=== PATIENT | female | born 1940 | race Caucasian/White ===

== ENCOUNTER 2016-06-23 04:21 | Emergency (ER) | payer BC ==
[~2016-06-23] VITALS: Ht 170.2 cm; Wt 63.0 kg
[2016-06-23 04:25] VITALS: TEMP 36.4; Ht 170.2 cm; Wt 63.0 kg
[2016-06-23] MEDS ORDERED: HYDROCODONE/ACETAMOPHEN 5/325MG TAB PO ONE (05:00)
--- NOTE | 2016-06-23 05:05 | EMERGENCY ROOM VISIT NOTE ---
History Report prepared by Ariana: Bess Lynch Under the Supervision of: Dr. Wendy Gan M.D. 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 The patient rates the pain as a 9/10 in severity. The patient states that she was cooking yesterday and fell hitting the kitchen counter. The patient states she is unsure what happened to cause the fall , and that she might have fainted briefly. She denies any LOC. The patient states that the fall happened so fast that she does not remember exactly what happened. The patient states she also has neck pain with her symptoms. She denies any back pain or blood in her urine. The patient states that she was not able to sleep more than a half an hour due to the pain. 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 Review of Systems See HPI for pertinent positives & negatives. A total of 10 systems reviewed and were otherwise negative. Past Medical & Surgical Medical Problems: (1) Breast cancer Family History No pertinent family history secondary to age Social History Smoking Status: Current Every Day Smoker Marital Status: Housing Status: lives with significant other Occupation Status: retired Current/Historical Medications Scheduled PRN Hydrocodone/Acetaminophen 5MG/325MG (Conrath 5MG/325MG), 1 TABLET PO Q6 PRN for Pain Allergies Coded Allergies: Clindamycin (Unverified Allergy, Mild, HIVES, 06/23/16) Sulfa Drugs (Verified Allergy, Mild, UNSURE, 06/23/16) Physical Exam Vital Signs Date Time Temp Pulse Resp B/P Pulse Ox O2 Delivery O2 Flow Rate FiO2 06/23/16 05:41 81 20 154/78 98 06/23/16 04:25 36.4 98 20 146/90 98 Room Air Physical Exam Vital signs reviewed. General: Elderly female. HEENT: No scleral icterus, PERRLA, neck supple. Atraumatic. Cardiovascular: Regular rate and rhythm, no extra sounds. Pulmonary: Clear to auscultation bilaterally, normal work of breathing. Abdomen: Soft, nontender, nondistended, positive bowel sounds. Musculoskeletal: Atraumatic, no peripheral edema. Tenderness over the left lateral distal ribs, pain with deep inspiration. Positive splinting. Neurologic: Patient awake alert and oriented x 3, full strength in all 4 extremities. Cranial nerves 2 through 12 grossly intact. Skin: Warm, dry, no rash Medical Decision & Procedures ER Provider Diagnostic Interpretation: X-ray results as stated below per interpretation by me: Ribs with Chest X-ray: Rib fractures of the left distal ribs 9, 10, 11 No pneumothorax. Medications Administered Medications (Trade) Dose Ordered Sig/Minnie Route Start Time Stop Time Status Last Admin Dose Admin Acetaminophen/ Hydrocodone Bitart (Conrath 5/325 Tab) 1 tab NOW ONCE PO 06/23/16 05:00 06/23/16 05:01 DC 06/23/16 05:29 1 TAB ED Course 0456: Past medical records reviewed. The patient was evaluated in room B12B. A complete history and physical examination was performed. 0500: Ordered Conrath 5/325 Tab 1 tab PO. 0505: Upon reevaluation,I discussed findings with her. She verbalized agreement of the treatment plan. The patient was discharged home. Medical Decision The patient is a 75 year old female who presents to the ED with complaints of left rib pain. Differentials include rib fracture, pneumothorax, pneumonia, PE , contusion, spleen injury, and kidney injury. This patient was evaluated and appeared to be in no significant distress. Patient was given a Conrath tablet. Chest x-ray was performed and reveals multiple left-sided rib fractures. There is no significant pneumothorax appreciated to my review. The patient was instructed on incentive spirometry and discharged with a prescription for Conrath. She will use ibuprofen as needed for less severe pain. Patient will follow-up with her physician for reevaluation this week and return to the ER for worsening of symptoms or any medical concerns. Impression Primary Impression: Multiple fractures of ribs of left side Scribe Attestation The scribe's documentation has been prepared under my direction and personally reviewed by me in its entirety. I confirm that the note above accurately reflects all work, treatment, procedures, and medical decision making performed by me. Departure Information Dispostion Home / Self-Care Prescriptions Hydrocodone/Acetaminophen 5MG/325MG (Conrath 5MG/325MG) Tab 1 TABLET PO Q6 Y for Pain, #20 TAB Prov: Wendy Gan M.D. 06/23/16 Referrals Sincere Phan M.D. (PCP) Forms HOME CARE DOCUMENTATION FORM, IMPORTANT VISIT INFORMATION, WORK / SCHOOL INSTRUCTIONS Patient Instructions My [facility] Additional Instructions Diagnosis: Multiple left-sided rib fractures Incentive spirometer 10 times every hour while awake. Ibuprofen 600 mg every 6 hours as needed for pain with food. Conrath one tablet every 6 hours as needed for severe pain. Do not drive or take Tylenol with this medication. Follow-up with your physician this week for reevaluation. Return to the ER for worsening of symptoms or any medical concerns. Problem Qualifiers Primary Impression: Multiple fractures of ribs of left side Encounter type: initial encounter Fracture type: closed Qualified Codes: S22.42XA - Multiple fractures of ribs, left side, initial encounter for closed fracture
[2016-06-23] MEDS ORDERED: HYDR-5688 PO (05:09)
[2016-06-23 05:41] VITALS: BP 154/78; PULSE 81; O2SAT 98
--- NOTE | 2016-06-23 06:52 | DIAGNOSTIC IMAGING REPORT ---
LEFT RIBS UNILATERAL WITH PA CHEST CLINICAL HISTORY: Left rib pain status post trauma COMPARISON STUDY: No previous studies for comparison. FINDINGS: The erect chest reveals a 4 mm left apical pneumothorax. There are fractures of the left eighth ninth and 10th ribs. IMPRESSION: 1. Acute fractures of the left eighth, ninth, and 10th ribs. 2. Tiny left apical pneumothorax Electronically signed by: Silvino Rousseau M.D. 06/23/2016 6:51 AM Dictated Date/Time: 06/23/2016 6:48 AM
--- NOTE | 2016-06-23 07:33 | EMERGENCY ROOM VISIT NOTE ---
ED Visit Note First contact with patient: 04:29 Addendum: Radiology over read the x-ray performed earlier today and it is concerning for a tiny apical pneumothorax in addition to the rib fractures. The charge nurse Florencio Arguelles RN was asked to notify the patient of the findings and return later today for repeat chest x-ray.
[2016-11-09] MEDS ORDERED: MULT-506 PO (15:42)
[2016-11-16] MEDS ORDERED: IBUP-1459 PO (07:57)
== END 2016-06-23 05:42 | disposition home or self-care (01) ==
LOC: C.EDB 04:21
DX: S22.42XA Multiple fractures of ribs, left side, initial encounter for closed fracture (principal); W01.198A Fall on same level from slipping, tripping and stumbling with subsequent striking against other object, initial encounter; Y92.010 Kitchen of single-family (private) house as the place of occurrence of the external cause; Y93.G3 Activity, cooking and baking; Z85.3 Personal history of malignant neoplasm of breast; F17.210 Nicotine dependence, cigarettes, uncomplicated; S20.212A Contusion of left front wall of thorax, initial encounter; J93.9 Pneumothorax, unspecified

== ENCOUNTER 2016-06-23 09:19 | Emergency (ER) | payer BC ==
[~2016-06-23] VITALS: Ht 170.2 cm; Wt 63.0 kg
[~2016-06-23 09:19] MED LIST: HYDR-5688 PO
[2016-06-23 09:23] VITALS: TEMP 36.6; Ht 170.2 cm; Wt 63.0 kg
[2016-06-23] MEDS ORDERED: OXYCODONE HCL IR 5 MG TAB (IMMEDIATE RELEASE) PO STA (09:35)
--- NOTE | 2016-06-23 09:39 | EMERGENCY ROOM VISIT NOTE ---
History Report prepared by Scribe: Henrietta Vargas Under the Supervision of: Dr. Elder Lucas D.O. First contact with patient: 09:28 Chief Complaint: ABNORMAL DIAGNOSTIC TESTING Stated Complaint: ASKED TO COME BACK/ REPEAT X-RAY History of Present Illness The patient is a 75 year old female who presents to the Emergency Room to be evaluated for an abnormal x-ray this morning. The patient had a fall yesterday evening around 5PM in the kitchen. She slipped on the floor and fell into the counter, landing on the floor. She believes that she landed directly on her left ribs. Denies loss of consciousness. She was seen in the emergency room early this morning for evaluation and had a chest x-ray which revealed left distal fractures of ribs 9, 10, and 11. She was discharged home with a [facility] prescription. When radiology read the x-ray later in the morning, they found a tiny apical pneumothorax in addition to the rib fractures. She was asked to return to the ED for a repeat evaluation. Currently, she continues to complain of left rib pain. 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 Source of History: patient Onset: this morning Position: other (tiny apical pneumothorax) Timing: constant Note: Other symptoms: left rib pain Review of Systems See HPI for pertinent positives & negatives. A total of 10 systems reviewed and were otherwise negative. Past Medical & Surgical Medical Problems: (1) Breast cancer Family History No pertinent family history secondary to age Social History Smoking Status: Current Every Day Smoker Marital Status: Housing Status: lives with significant other Occupation Status: retired Current/Historical Medications Scheduled PRN Hydrocodone/Acetaminophen 5MG/325MG ([facility] 5MG/325MG), 1 TABLET PO Q6 PRN for Pain Allergies Coded Allergies: Clindamycin (Unverified Allergy, Mild, HIVES, 06/23/16) Sulfa Drugs (Verified Allergy, Mild, UNSURE, 06/23/16) Physical Exam Vital Signs Date Time Temp Pulse Resp B/P Pulse Ox O2 Delivery O2 Flow Rate FiO2 06/23/16 11:11 81 18 146/75 96 06/23/16 09:23 36.6 86 18 161/77 97 Room Air Physical Exam GENERAL: Patient is awake, alert, and in no acute distress. Patient is somewhat uncomfortable appearing and showing no signs of anxiety EYES: The conjunctivae are clear. The pupils are round and reactive. EARS, NOSE, MOUTH AND THROAT: The nose is without any evidence of any deformity. Mucous membranes are moist tongue is midline NECK: The neck is nontender and supple. RESPIRATORY: Splinting respirations noted. Diminished breath sounds noted throughout. No tachypnea or conversational dyspnea was noted. CARDIOVASCULAR: Regular rate and rhythm noted there no murmurs rubs or gallops normal S1 normal S2 GASTROINTESTINAL: The abdomen is soft. Bowel sounds are present in all quadrants. Abdomen is nontender PELVIS: The Pelvis is stable. No tenderness to palpation is noted. BACK: There was no midline tenderness appreciated. MUSCULOSKELETAL/EXTREMITIES: There is no evidence of gross deformity full range of motion is noted in the hips and shoulders SKIN: No edema was appreciated. There was chronic venostasis changes noted in both lower extremities. NEUROLOGIC: Patient is awake alert and oriented x3 Medical Decision & Procedures ER Provider Diagnostic Interpretation: Radiology results as stated below per my review and radiologist interpretation: CHEST-PA, LAT, APICAL LORDOTIC CLINICAL HISTORY: Pneumothorax. Chest trauma. COMPARISON STUDY: 02/13/2012 FINDINGS: There is an 8 mm left apical pneumothorax. Lower left rib fractures are visualized. There is no focal pulmonary consolidation. There is a trace left pleural effusion. IMPRESSION: 1. 7 mm left apical pneumothorax 2. Left-sided rib fractures 3. Trace left pleural fluid Electronically signed by: Silvino Rousseau M.D. 06/23/2016 10:18 AM Dictated Date/Time: 06/23/2016 10:17 AM Medications Administered Medications (Trade) Dose Ordered Sig/Minnie Route Start Time Stop Time Status Last Admin Dose Admin Oxycodone HCl (Roxicodone Immediate Rel Tab) 5 mg NOW STAT PO 06/23/16 09:35 06/23/16 09:36 DC 06/23/16 10:26 5 MG Ondansetron HCl (Zofran Odt) 4 mg ONE ONCE PO 06/23/16 09:45 06/23/16 09:46 DC 06/23/16 10:26 4 MG ED Course 30: The patient was evaluated in room A4. A complete history and physical examination were performed. 0935: Ordered Oxycodone HCl 5 mg PO. 0945: Ordered Zofran Odt 4 mg PO. 1034: I reassessed the patient and updated her on results. 1039: I discussed the case with Dr. Monzon - Thoracic Surgery. He will see the patient in the office tomorrow. 1044: Upon reevaluation, the patient is resting comfortably. I discussed the results and treatment plan with the patient. She verbalized agreement of the treatment plan. She was discharged home. Medical Decision Prior records/ancillary studies reviewed. Triage Nursing notes reviewed. The patient's history was concerning for traumatic injury Differential diagnosis: Etiologies such as fracture, dislocation, intra-abdominal, pneumothorax, intrathoracic , intracranial, neurologic, as well as other traumatic pathologies were entertained. The patient is a 75-year-old female who presented to the emergency department at the request of the emergency department charge nurse. The patient had a fall yesterday where she struck the left side of her chest. She was seen early this morning in our emergency department and was diagnosed with multiple left-sided rib fractures. Her chest x-ray was over read as a small left apical pneumothorax. She was already discharged at this time and was called by the charge nurse and told to return to the emergency department for repeat chest x- ray. The patient appeared to have significant left-sided rib pain consistent with her rib fractures. The patient was treated with pain medication and antiemetics in the emergency department. On subsequent reevaluation she was feeling much better. The patient had repeat chest x-ray which showed a small left apical pneumothorax. I discussed her case with the on-call cardiothoracic surgeon. He has recommended 24-hour follow-up for repeat chest x-ray in his office. And then he would follow her clinically as well as with serial chest x- rays. The patient was encouraged to follow-up with the cardiothoracic surgeon tomorrow. She was also encouraged to rest and avoid any strenuous activity. She was also encouraged to continue using the incentive spirometer and return to the emergency department immediately if symptoms change worsen or if the need arises. Consults Time Called: 103 Consulting Physician: Dr. Monzon - Thoracic Surgery Returned Call: 1030 I discussed the case with him. He will see the patient in the office tomorrow. Impression Primary Impression: Multiple fractures of ribs of left side Additional Impressions: Pneumothorax, left Chest wall contusion Scribe Attestation The scribe's documentation has been prepared under my direction and personally reviewed by me in its entirety. I confirm that the note above accurately reflects all work, treatment, procedures, and medical decision making performed by me. Departure Information Dispostion Home / Self-Care Referrals Sincere Phan M.D. (PCP) Alessandro Monzon MD Patient Instructions Fx Rib, My [facility] Additional Instructions Rest and avoid any strenuous activity. Continue all medications as prescribed. Follow-up with the cardiothoracic surgeon tomorrow as scheduled. Return to the emergency department immediately if symptoms change worsen or if the need arises. Problem Qualifiers Primary Impression: Multiple fractures of ribs of left side Encounter type: subsequent encounter Fracture type: closed Fracture healing : with routine healing Qualified Codes: S22.42XD - Multiple fractures of ribs , left side, subsequent encounter for fracture with routine healing Additional Impressions: Chest wall contusion Encounter type: subsequent encounter Laterality: left Qualified Codes: S20.212D - Contusion of left front wall of thorax, subsequent encounter
[2016-06-23] MEDS ORDERED: ONDANSETRON 4MG OD TAB PO ONE (09:45)
--- NOTE | 2016-06-23 10:19 | DIAGNOSTIC IMAGING REPORT ---
CHEST-PA, LAT, APICAL LORDOTIC CLINICAL HISTORY: Pneumothorax. Chest trauma. COMPARISON STUDY: 02/13/2012 FINDINGS: There is an 8 mm left apical pneumothorax. Lower left rib fractures are visualized. There is no focal pulmonary consolidation. There is a trace left pleural effusion. IMPRESSION: 1. 7 mm left apical pneumothorax 2. Left-sided rib fractures 3. Trace left pleural fluid Electronically signed by: Silvino Rousseau M.D. 06/23/2016 10:18 AM Dictated Date/Time: 06/23/2016 10:17 AM
[2016-06-23 11:11] VITALS: BP 146/75; PULSE 81; O2SAT 96
[2016-11-09] MEDS ORDERED: MULT-506 PO (15:42)
[2016-11-16] MEDS ORDERED: IBUP-1459 PO (07:57)
== END 2016-06-23 11:13 | disposition home or self-care (01) ==
LOC: C.EDB 09:20 → C.EDA 11:13
DX: S22.42XA Multiple fractures of ribs, left side, initial encounter for closed fracture (principal); S20.212A Contusion of left front wall of thorax, initial encounter; J93.9 Pneumothorax, unspecified; W01.198A Fall on same level from slipping, tripping and stumbling with subsequent striking against other object, initial encounter; Y92.010 Kitchen of single-family (private) house as the place of occurrence of the external cause; Z85.3 Personal history of malignant neoplasm of breast; F17.210 Nicotine dependence, cigarettes, uncomplicated

== ENCOUNTER → 2016-06-24 | Outpatient (CLI) | payer BC ==
[~2016-06-24] MED LIST changes: +IBUP-1459 PO; +MULT-506 PO
--- NOTE | 2016-06-24 08:35 | DIAGNOSTIC IMAGING REPORT ---
CHEST 2 VIEWS ROUTINE CLINICAL HISTORY: FOLLOW UP PNEUMOTHORAX, LT SIDED RIB FRACTURE*STATFOLLOW UP PNEU COMPARISON STUDY: 06/23/2016 FINDINGS: Very small residual left apical pneumothorax. Pleural separation is diminished from 7 to 4 mm. Chronic changes left base. Lungs otherwise appear clear. IMPRESSION: Very small left apical pneumothorax diminished in the prior study. Maximum pleural separation currently is 4 mm Electronically signed by: Romero Davis M.D. 06/24/2016 8:34 AM Dictated Date/Time: 06/24/2016 8:33 AM
== END | disposition home or self-care (01) ==
LOC: C.RAD 08:04
PROVIDERS: ATTEND Emergency Medicine
DX: Z09 Encounter for follow-up examination after completed treatment for conditions other than malignant neoplasm (principal); J93.9 Pneumothorax, unspecified; S22.32XA Fracture of one rib, left side, initial encounter for closed fracture; X58.XXXA Exposure to other specified factors, initial encounter

== ENCOUNTER → 2016-07-14 | Outpatient (CLI) | payer BC ==
--- NOTE | 2016-07-14 07:59 | DIAGNOSTIC IMAGING REPORT ---
CHEST 2 VIEWS ROUTINE CLINICAL HISTORY: PNEUMOTHORAX J93.9 pneumothorax COMPARISON STUDY: 06/24/2016 FINDINGS: Several left rib fractures unchanged. Lungs are currently considered clear. No evidence of pneumothorax. Appears described small left apical pneumothorax has resolved. IMPRESSION: No evidence for pneumothorax. Lungs are considered clear. Several left-sided rib fractures which have been described previously. Electronically signed by: Romero Davis M.D. 07/14/2016 7:57 AM Dictated Date/Time: 07/14/2016 7:57 AM
== END | disposition home or self-care (01) ==
LOC: C.RAD 07:36
PROVIDERS: ATTEND Surgery
DX: J93.9 Pneumothorax, unspecified (principal); S22.42XA Multiple fractures of ribs, left side, initial encounter for closed fracture; X58.XXXA Exposure to other specified factors, initial encounter

== ENCOUNTER → 2016-11-16 | Day surgery (SDC) | payer BC ==
[2016-11-09 15:42] VITALS: Ht 170.2 cm; Wt 62.7 kg
[~2016-11-16] VITALS: Ht 170.2 cm; Wt 62.7 kg
[~2016-11-16] MED LIST changes: -HYDR-5688 PO; +LIDOCAINE HCL 2% 2 ML VIAL (20MG/ML) ONE; +PROPOFOL IV EMULSION 10 MG/ML 20 ML VIAL IV ONE; +SODIUM CHLORIDE 0.9% 500ML 500 ML IV ONE
--- NOTE | 2016-11-16 08:21 | Endo History and Physical ---
History & Physical Date of Service: Nov 16, 2016. Chief Complaint: history of polyps Referring Physician: Dr. Sincere Phan History of Present Illness Surveillance colonoscopy for a history of polyps. Past Surgical History Hx Cardiac Surgery: No Hx Internal Defibrillator: No Hx Pacemaker: No Hx Abdominal Surgery: Yes (APPY) Hx of Implantable Prosthesis: No Hx Post-Op Nausea and Vomiting: No Hx Cancer Surgery: Yes (RT/LEFT LUMPECTOMY) Hx Thoracic Surgery: No Hx Orthopedic: Yes (LEFT ANKLE FX REPAIR) Hx Urinary Tract Surgery: No Family History None Social History Smoking Status: Current Every Day Smoker Hx Substance Use: No Hx Alcohol Use: Yes (1-2 DRINKS DAILY WITH DINNER) Allergies Coded Allergies: Clindamycin (Verified Allergy, Mild, HIVES, 11/16/16) Sulfa Drugs (Verified Allergy, Mild, RASH, 11/09/16) Current Medications Reported Home Medications Medications Dose Route/Sig Max Daily Dose Days Date Category Motrin (Ibuprofen) 400 Mg Tab 400 Mg PO Q6H PRN 11/16/16 Reported Multivitamin (Multivitamins) Tab 1 Tab PO DAILY 11/09/16 Reported Vital Signs Weight (Kilograms): 62.73 Height (Feet): 5 Height (Inches): 7 Date Time Temp Pulse Resp B/P (MAP) Pulse Ox O2 Delivery O2 Flow Rate FiO2 11/16/16 08:06 36.5 85 20 162/87 (112) 99 Room Air Physical Exam General Appearance: WD/WN, no apparent distress Respiratory/Chest: Auscultation: breath sounds normal, no wheezing Cardiovascular: Heart Auscultation: RRR, no murmurs Abdomen: Inspection & Palpation: soft, no tenderness, guarding & rebound Assessment and Plan Colonoscopy today.
--- NOTE | 2016-11-16 09:05 | Discharge Instructions ---
Endoscopy Patient Instructions Date / Procedure(s) Performed Nov 16, 2016. Colonoscopy Allergy Information Coded Allergies: Clindamycin (Verified Allergy, Mild, HIVES, 11/16/16) Sulfa Drugs (Verified Allergy, Mild, RASH, 11/09/16) Discharge Date / Findings Nov 16, 2016. Normal examination. Medication Instructions Restart Stopped Medication(s): Restart all medications today. Provider Instructions Activity Restrictions - No exercising or heavy lifting for 24 hours. - Do not drink alcohol the day of the procedure. - Do not drive a car or operate machinery until the day after the procedure. - Do not make any important decisions or sign important papers in 24 hours after the procedure. Following Day: - Return to full activity which may include returning to work/school. Diet Start your diet with liquids and light foods (jello, soup, juice, toast). Then eat your usual diet if not nauseated. Treatment For Common After Affects For mild abdominal pain, bloating, or excessive gas: - Rest - Eat lightly - Lie on right side Follow-Up Information Follow-up with Dr. Sincere Phan as scheduled Anesthesia Information What You Should Know You have had a procedure that required some medicine to reduce anxiety and discomfort. This treatment is called moderate sedation. After receiving the treatment, you may be sleepy, but you will be able to breathe on your own. The effects of the treatment may last for several hours. Follow these instructions along with Activity/Diet recommendations noted above: * Do NOT do anything where dizziness or clumsiness would be dangerous. * Rest quietly at home today, then you can be up and about tomorrow. * Have a responsible person stay with you the rest of today. * You may have had an I.V. today. If so, you may take the dressing off later today. Recommendations Call your doctor if: * Trouble breathing * Continuous vomiting for more than 24 hours * Temperature above 101 degrees * Severe abdominal pain or bloating * Pain not relieved by pain medicine ordered * There is increased drainage or redness from any incision * A large amount of rectal bleeding greater than 2-3 tablespoons. (If you had a polyp/s removed or have hemorrhoids, a small amount of blood - from the rectum is to be expected.) * You have any unanswered questions or concerns. IN THE EVENT OF A SERIOUS EMERGENCY, GO TO THE NEAREST EMERGENCY ROOM Your discharge instructions were prepared by provider Elder Christie. Patient Instructions Signature Page Nelda Bagley Patient (or Guardian) Signature/Date: I have read and understand the instructions given to me by my caregivers. Caregiver/RN/Doctor Signature/Date: The above-named patient and/or guardian has received patient instructions on this date. + Original Patient Signature Page (only) stays with chart. Please make copy for patient.
--- NOTE | 2016-11-16 09:22 | Anesthesiology Progress Note ---
Anesthesia Post Op Note Date & Time Nov 16, 2016 at 09:22 Vital Signs Pain Intensity: 0 Vital Signs Past 12 Hours Date Time Temp Pulse Resp B/P (MAP) Pulse Ox O2 Delivery O2 Flow Rate FiO2 11/16/16 09:16 73 16 129/80 (96) 98 Room Air 11/16/16 09:01 71 16 95/54 (68) 96 Room Air 11/16/16 08:06 36.5 85 20 162/87 (112) 99 Room Air Notes Mental Status: alert / awake / arousable, participated in evaluation Pt Amnestic to Procedure: Yes Nausea / Vomiting: adequately controlled Pain: adequately controlled Airway Patency, RR, SpO2: stable & adequate BP & HR: stable & adequate Hydration State: stable & adequate Anesthetic Complications: no major complications apparent
[2016-11-16 09:31] VITALS: BP 145/85; PULSE 71; O2SAT 100
--- NOTE | 2016-11-17 00:16 | GI REPORT ---
Procedure Date: 11/16/2016 8:29 AM Procedure: Colonoscopy Indications: High risk colon cancer surveillance: Personal history of colonic polyps Medicines: Propofol per Anesthesia Complications: No immediate complications. Estimated blood loss: None. Estimated Blood Loss: Estimated blood loss: none. Procedure: Pre-Anesthesia Assessment: - Prior to the procedure, a History and Physical was performed, and patient medications, allergies and sensitivities were reviewed. The patient's tolerance of previous anesthesia was reviewed. - ASA Grade Assessment: II - A patient with mild systemic disease. After I obtained informed consent, the scope was passed under direct vision. Throughout the procedure, the patient's blood pressure, pulse, and oxygen saturations were monitored continuously. The scope was introduced through the anus and advanced to the cecum, identified by appendiceal orifice and ileocecal valve. The colonoscopy was performed with ease. The patient tolerated the procedure well. The quality of the bowel preparation was excellent. The bowel preparation used was split dose MIralax. Findings: The entire examined colon appeared normal. Impression: - The entire examined colon is normal. - No specimens collected. Recommendation: - No repeat colonoscopy due to age and the absence of advanced adenomas. Elder Christie M.D. Elder Christie MD 11/16/2016 9:03:48 AM This report has been signed electronically. Note Initiated On: 11/16/2016 8:29 AM I attest to the content of the Intraoperative Record and orders documented therein, exceptions below
== END | disposition home or self-care (01) ==
LOC: C.GI 07:44
PROVIDERS: ATTEND Internal Medicine Gastroenterology
DX: Z12.11 Encounter for screening for malignant neoplasm of colon (principal); Z86.010 Personal history of colon polyps; F17.200 Nicotine dependence, unspecified, uncomplicated

== ENCOUNTER → 2016-12-01 | Outpatient (CLI) | payer BC ==
[~2016-12-01] MED LIST changes: -LIDOCAINE HCL 2% 2 ML VIAL (20MG/ML) ONE; -PROPOFOL IV EMULSION 10 MG/ML 20 ML VIAL IV ONE; -SODIUM CHLORIDE 0.9% 500ML 500 ML IV ONE
--- NOTE | 2016-12-01 10:13 | DIAGNOSTIC IMAGING REPORT ---
ULTRASOUND ABDOMEN COMPLETE CLINICAL HISTORY: Generalized abdominal pain. COMPARISON STUDY: No priors. TECHNIQUE: Real-time, grayscale, and color flow sonography of the abdomen was performed. Images are reviewed in the transverse and longitudinal planes. FINDINGS: Liver: The liver is top normal in size and demonstrates heterogeneously increased echotexture consistent with hepatic steatosis. There is no intrahepatic biliary ductal dilatation. The main portal vein is patent. Subcentimeter cysts are incidentally noted. Gallbladder: The gallbladder is normal in appearance. No gallstones are identified. There is no gallbladder wall thickening or pericholecystic fluid. A sonographic Aguirre's sign is reportedly absent. The common bile duct measures up to 0.4 cm in diameter. Pancreas: Visualized portions of the pancreatic head and body are normal in appearance. Spleen: The spleen is normal in size and echotexture, measuring 7.6 cm in length. Kidneys: The kidneys are normal in size and echotexture. There is no hydronephrosis. The right kidney measures 12.2 cm in length and the left kidney measures 10.0 cm in length. No shadowing calculi are identified. Abdominal vasculature: Visualized portions of the abdominal aorta and IVC are normal in appearance. Ascites: None. IMPRESSION: 1. No acute sonographic abnormality is identified. No gallstones are seen. 2. Hepatic steatosis. Electronically signed by: Nahun Haley M.D. 12/01/2016 10:11 AM Dictated Date/Time: 12/01/2016 10:10 AM
--- NOTE | 2016-12-01 10:34 | DIAGNOSTIC IMAGING REPORT ---
PELVIC COMPLETE NON OB HISTORY: 76 years-old Female ABD PAIN,PELVIC PERINEAL PAIN acute right-sided pelvic pain. Initial exam. COMPARISON: None available. TECHNIQUE: Multiple real-time sonographic images of the deep pelvic structures were obtained transabdominally and transvaginally assessing grayscale appearance and color flow and spectral analysis. FINDINGS: TRANSABDOMINAL: Pelvic structures are not well seen. TRANSVAGINAL: Uterus measures 5.4 x 3.7 x 5.0 cm and appears heterogeneous. Nabothian cyst is seen, 1.1 x 0.7 cm. There is a ovoid circumscribed structure of the posterior cervix, 1.4 x 1.2 x 1.3 cm suggesting complex nabothian cyst without internal flow. Endometrium is upper limits of normal, 0.5 cm. Left ovary is not diagnostically visualized. Right ovary measures 2.4 x 0.9 x 0.9 cm demonstrating arterial inflow. No right ovarian mass lesions are identified. There is no significant free pelvic fluid. IMPRESSION: 1. Endometrium measures within the upper limits of normal for a postmenopausal patient at 5 mm. 2. Several nabothian cysts are seen, at least one of which is mildly complex. 3. Right ovary appears normal. Left ovary not identified. The above report was generated using voice recognition software. It may contain grammatical, syntax or spelling errors. Electronically signed by: Elio Jauregui M.D. 12/01/2016 10:33 AM Dictated Date/Time: 12/01/2016 10:08 AM
== END | disposition home or self-care (01) ==
LOC: C.ULTR 08:51
PROVIDERS: ATTEND Family Medicine
DX: M54.30 Sciatica, unspecified side (principal); R10.9 Unspecified abdominal pain; R10.2 Pelvic and perineal pain; K76.0 Fatty (change of) liver, not elsewhere classified; N88.8 Other specified noninflammatory disorders of cervix uteri

== ENCOUNTER → 2016-12-22 | Outpatient (CLI) | payer BC | END | disposition home or self-care (01) | LOC: C.PAPS 08:22 | PROVIDERS: ATTEND Obstetrics & Gynecology | DX: Z12.4 Encounter for screening for malignant neoplasm of cervix (principal) ==

== ENCOUNTER → 2017-07-04 | Day surgery (SDC) | payer BC ==
[2017-06-08 13:05] VITALS: Ht 170.2 cm; Wt 61.4 kg
[~2017-07-04] VITALS: Ht 170.2 cm; Wt 61.4 kg
[~2017-07-04] MED LIST changes: +500ML BSS 0.3ML EPI 1:1000PF IRRIG ONE; +ACETAMINOPHEN 325 MG TAB PO PRN; +AMVISC PLUS 0.8ML SYRINGE INT OCU ONE; +ATROPINE SULFATE 0.1 MG/ML 5ML SYR IV PRN; +BSS FLUSH ONE; +EpHEDrine SULFATE INJ 50 MG/ML AMP IV PRN; +EpINEphrine INJ 1MG/ML AMP 1 MG/ML AMP ONE; +LACTATED RINGER'S 1000ML 500 ML IV SCH; +LIDOCAINE 3.5% OPH GEL PER APPLICATION CHARGE ONE; +LIDOCAINE HCL 1% MPF 2 ML VIAL ONE; +MIDAZOLAM HCL 1 MG/ML 2ML VIAL ONE; +PHENYLEPHRINE HCL 10% OP SOLN PER DROP CHARGE OPR SCH; +POVIDONE-IODINE OP SOLN 30 ML BTL ONE; +PROPARACAINE 0.5% OP SOLN PER DROP CHARGE OPR SCH; +TOBRAMYCIN/DEXAMETHASONE OPH OINT PER APPLN CHARGE ONE
[2017-07-04] MEDS: PHENYLEPHRINE HCL 2.5% OP SOLN PER DROP CHARGE OPR SCH ×2 (08:39→08:48)
[2017-07-04] MEDS: TROPICAMIDE 1% OP SOLN PER DROP CHARGE OPR SCH ×2 (08:40→08:49)
[2017-07-04] MEDS: CYCLOPENTOLATE HCL 1% OP SOLN PER DROP CHARGE OPR SCH ×2 (08:41→08:50)
[2017-07-04] MEDS: KETOROLAC 0.5% OP SOLN PER DROP CHARGE OPR SCH ×2 (08:42→08:51)
[2017-07-04] MEDS: GATIFLOXACIN OP SOLN PER DROP CHARGE OPR SCH ×2 (08:43→08:53)
--- NOTE | 2017-07-04 09:08 | History & Physical Bridge - SC ---
H&P Re-Evaluation Bridge Note: I have examined the patient, reviewed the History & Physical and in the interval since the performance of the History & Physical I have noted the following changes of clinical significance: No changes noted
--- NOTE | 2017-07-04 09:56 | [facility] Operative Report ---
Operative Report Date of Service Jul 04, 2017. Operative Report 1. PREOPERATIVE DIAGNOSIS: Cataract of the right eye. 2. POSTOPERATIVE DIAGNOSIS: Same. 3. PROCEDURE: Phacoemulsification with intraocular lens implantation of the right eye. SURGEON: Dr. Tavon Elizabeth. ANESTHESIA: Topical Lidocaine gel, 1% Non- Preserved intracameral Lidocaine, and monitored intravenous sedation. INDICATIONS FOR THE PROCEDURE: The patient is a 76 - year-old female with a history of cataract of the right eye causing significant visual impairment. The details of the proposed procedure were explained to the patient who asked appropriate questions and following discussion of all risks, benefits and alternatives agreed to have the procedure done. 4. OPERATION AND FINDINGS: DESCRIPTION OF PROCEDURE: After informed consent was obtained, the patient was brought to the Operating Room at the [facility]. The patient was placed in a supine position and then the right eye was prepped and draped in the usual sterile fashion for intraocular surgery. A drop of topical Lidocaine gel was placed in the operative eye. A wire lid speculum was then placed in the fornices. A corneal paracentesis was then created temporally. The Non-Preserved Lidocaine was then instilled into the anterior chamber. The anterior chamber was then pressurized with viscoelastic. A 2.0 mm clear corneal incision was then created temporally. A cystotome was inserted into the anterior chamber and used to create a tear in the anterior lens capsule. This capsular tear was then used to create a small flap and the flap was dragged in a counterclockwise direction in order to create a continuous curvilinear capsulorrhexis. Hydrodissection was accomplished with balanced salt solution. Phacoemulsification of the lens nucleus was then performed in a standard [id number] technique. The phaco time was 30 seconds with an average power of 6 %. The remaining cortical material was removed using irrigation aspiration. The capsular bag was then filled with viscoelastic. A B[employer]ch [employer] Lomb MI60L +20.5 diopters lens was then loaded into the injector and injected into the capsular bag. The remaining viscoelastic was removed with the irrigation aspiration handpiece. The wound was hydrated and then checked and found to be watertight. The intraocular pressure was checked and found to be adequate. The wire lid speculum was removed and the patient's face was cleaned and dried. TobraDex ointment was placed in the inferior fornix. The patient was discharged to the Recovery Room having tolerated the procedure well. There were no complications. The patient will be seen tomorrow in the office for follow-up. I attest to the content of the Intraoperative Record and any orders documented therein. Any exceptions are noted below.
--- NOTE | 2017-07-04 09:57 | Discharge Instructions-SurgCtr ---
Discharge Instructions Date of Service Jul 04, 2017. Visit Reason for Visit: Cataract Right Eye Discharge Discharge Diagnosis / Problem: cataract Discharge Goals Goal(s): Improve function Activity Recommendations Activity Limitations: per Instructions/Follow-up section Anesthesia . Post Anesthesia Instructions: If you have had General Anesthesia or IV Sedation: * Do not drive today. * Resume driving when surgeon permits. * Do not make important decisions or sign legal documents today. * Call surgeon for: 1. Temperature elevations greater than 101 degrees F. 2. Uncontrollable pain. 3. Excessive bleeding. 4. Persistent nausea and vomiting. 5. Medication intolerance (nausea, vomiting or rash). * For nausea and vomiting use only clear liquids such as: tea, soda, bouillon until nausea subsides, then gradually increase diet as tolerated. * If you have any concerns or questions, call your surgeon's office. If physician is unavailable and it is an emergency, call 911 or go to the nearest emergency room. . Diet Recommendations Home Diet: resume previous diet Procedures Procedures Performed: Right Cataract Phacoemulsification With Intraocular Lens Implant Pending Studies Studies pending at discharge: no Medical Emergencies . Who to Call and When: Medical Emergencies: If at any time you feel your situation is an emergency, please call 911 immediately. . Non-Emergent Contact Non-Emergency issues call your: Vision Specialist . . "Provider Documentation" section prepared by Tavon Elizabeth. .
[2017-07-04 09:59] VITALS: TEMP 36.4
--- NOTE | 2017-07-04 10:19 | Anesthesia Progress Nt - [facility] ---
Anesthesia Post Op Note Date & Time Jul 04, 2017 at 10:19 Vital Signs Pain Intensity: 0 Vital Signs Past 12 Hours Date Time Temp Pulse Resp B/P (MAP) Pulse Ox O2 Delivery O2 Flow Rate FiO2 07/04/17 09:59 36.4 75 16 118/77 (91) 99 Room Air 07/04/17 08:32 37.1 77 20 125/82 (96) 96 Room Air Notes Mental Status: alert / awake / arousable, participated in evaluation Pt Amnestic to Procedure: Yes Nausea / Vomiting: adequately controlled Pain: adequately controlled Airway Patency, RR, SpO2: stable & adequate BP & HR: stable & adequate Hydration State: stable & adequate Anesthetic Complications: no major complications apparent
[2017-07-04 10:29] VITALS: BP 115/65; PULSE 77; O2SAT 98
== END | disposition home or self-care (01) ==
LOC: X.SURG 07:57
PROVIDERS: ATTEND Ophthalmology
DX: H26.8 Other specified cataract (principal)

== ENCOUNTER → 2017-07-18 | Day surgery (SDC) | payer BC ==
[2017-07-13 08:09] VITALS: Ht 170.2 cm; Wt 61.4 kg
[~2017-07-18] VITALS: Ht 170.2 cm; Wt 61.4 kg
[~2017-07-18] MED LIST changes: +FENTANYL CITRATE INJ 50 MCG/1 ML 2 ML VIAL ONE; +IBUPROFEN 200 MG TAB ONE; +NURSING VERBAL MED ORDER ONE; +PHENYLEPHRINE HCL 10% OP SOLN PER DROP CHARGE OPL SCH; -PHENYLEPHRINE HCL 10% OP SOLN PER DROP CHARGE OPR SCH; +PROPARACAINE 0.5% OP SOLN PER DROP CHARGE OPL SCH; -PROPARACAINE 0.5% OP SOLN PER DROP CHARGE OPR SCH; +PROPOFOL IV EMULSION 10 MG/ML 20 ML VIAL IV ONE
[2017-07-18] MEDS: PHENYLEPHRINE HCL 2.5% OP SOLN PER DROP CHARGE OPL SCH ×2 (10:53→10:59)
[2017-07-18] MEDS: TROPICAMIDE 1% OP SOLN PER DROP CHARGE OPL SCH ×2 (10:54→11:00)
[2017-07-18] MEDS: CYCLOPENTOLATE HCL 1% OP SOLN PER DROP CHARGE OPL SCH ×2 (10:55→11:01)
[2017-07-18] MEDS: KETOROLAC 0.5% OP SOLN PER DROP CHARGE OPL SCH ×2 (10:56→11:02)
[2017-07-18] MEDS: GATIFLOXACIN OP SOLN PER DROP CHARGE OPL SCH ×2 (10:57→11:07)
--- NOTE | 2017-07-18 11:48 | [facility] Operative Report ---
Operative Report Date of Service Jul 18, 2017. Operative Report 1. PREOPERATIVE DIAGNOSIS: Cataract of the left eye. 2. POSTOPERATIVE DIAGNOSIS: Same. 3. PROCEDURE: Phacoemulsification with intraocular lens implantation of the left eye. SURGEON: Dr. Tavon Elizabeth. ANESTHESIA: Topical Lidocaine gel, 1% Non- Preserved intracameral Lidocaine, and monitored intravenous sedation. INDICATIONS FOR THE PROCEDURE: The patient is a 76 - year-old female with a history of cataract of the left eye causing significant visual impairment. The details of the proposed procedure were explained to the patient who asked appropriate questions and following discussion of all risks, benefits and alternatives agreed to have the procedure done. 4. OPERATION AND FINDINGS: DESCRIPTION OF PROCEDURE: After informed consent was obtained, the patient was brought to the Operating Room at the [facility]. The patient was placed in a supine position and then the left eye was prepped and draped in the usual sterile fashion for intraocular surgery. A drop of topical Lidocaine gel was placed in the operative eye. A wire lid speculum was then placed in the fornices. A corneal paracentesis was then created temporally. The Non-Preserved Lidocaine was then instilled into the anterior chamber. The anterior chamber was then pressurized with viscoelastic. A 2.0 mm clear corneal incision was then created temporally. A cystotome was inserted into the anterior chamber and used to create a tear in the anterior lens capsule. This capsular tear was then used to create a small flap and the flap was dragged in a counterclockwise direction in order to create a continuous curvilinear capsulorrhexis. Hydrodissection was accomplished with balanced salt solution. Phacoemulsification of the lens nucleus was then performed in a standard [id number]-[id number] technique. The phaco time was 31 seconds with an average power of 16 %. The remaining cortical material was removed using irrigation aspiration. The capsular bag was then filled with viscoelastic. A Bausch [employer] Lomb MI60L +21.0 diopters lens was then loaded into the injector and injected into the capsular bag. The remaining viscoelastic was removed with the irrigation aspiration handpiece. The wound was hydrated and then checked and found to be watertight. The intraocular pressure was checked and found to be adequate. The wire lid speculum was removed and the patient's face was cleaned and dried. TobraDex ointment was placed in the inferior fornix. The patient was discharged to the Recovery Room having tolerated the procedure well. There were no complications. The patient will be seen tomorrow in the office for follow-up. I attest to the content of the Intraoperative Record and any orders documented therein. Any exceptions are noted below.
--- NOTE | 2017-07-18 11:49 | Discharge Instructions-SurgCtr ---
Discharge Instructions Date of Service Jul 18, 2017. Visit Reason for Visit: Cataract Left Eye Discharge Discharge Diagnosis / Problem: cataract Discharge Goals Goal(s): Improve function Activity Recommendations Activity Limitations: per Instructions/Follow-up section Anesthesia . Post Anesthesia Instructions: If you have had General Anesthesia or IV Sedation: * Do not drive today. * Resume driving when surgeon permits. * Do not make important decisions or sign legal documents today. * Call surgeon for: 1. Temperature elevations greater than 101 degrees F. 2. Uncontrollable pain. 3. Excessive bleeding. 4. Persistent nausea and vomiting. 5. Medication intolerance (nausea, vomiting or rash). * For nausea and vomiting use only clear liquids such as: tea, soda, bouillon until nausea subsides, then gradually increase diet as tolerated. * If you have any concerns or questions, call your surgeon's office. If physician is unavailable and it is an emergency, call 911 or go to the nearest emergency room. . Diet Recommendations Home Diet: resume previous diet Procedures Procedures Performed: Left Cataract Phacoemulsification With Intraocular Lens Implant Pending Studies Studies pending at discharge: no Medical Emergencies . Who to Call and When: Medical Emergencies: If at any time you feel your situation is an emergency, please call 911 immediately. . Non-Emergent Contact Non-Emergency issues call your: Sheet Metal Worker Supervisor . . "Provider Documentation" section prepared by Tavon Elizabeth. .
[2017-07-18 12:32] VITALS: TEMP 37
--- NOTE | 2017-07-18 12:53 | Anesthesia Progress Nt - [facility] ---
Anesthesia Post Op Note Date & Time Jul 18, 2017 at 12:53 Vital Signs Pain Intensity: 2 Vital Signs Past 12 Hours Date Time Temp Pulse Resp B/P (MAP) Pulse Ox O2 Delivery O2 Flow Rate FiO2 07/18/17 12:32 37.0 74 12 132/66 (88) 97 Room Air 07/18/17 12:18 36.7 69 16 122/69 98 Room Air 07/18/17 12:16 73 14 07/18/17 12:16 73 14 122/69 97 07/18/17 12:11 73 16 126/64 98 07/18/17 12:11 74 16 07/18/17 12:06 77 10 106/58 99 07/18/17 12:06 75 10 07/18/17 12:01 75 17 07/18/17 12:01 74 17 111/65 99 07/18/17 11:56 72 18 07/18/17 11:56 72 18 115/68 98 07/18/17 11:52 108/68 07/18/17 11:51 36.4 67 12 108/68 96 Nasal Cannula 4 07/18/17 10:42 36.6 83 16 123/83 (96) 99 Room Air Notes Mental Status: alert / awake / arousable, participated in evaluation Pt Amnestic to Procedure: Yes Nausea / Vomiting: adequately controlled Pain: adequately controlled Airway Patency, RR, SpO2: stable & adequate BP & HR: stable & adequate Hydration State: stable & adequate Anesthetic Complications: no major complications apparent
[2017-07-18 13:10] VITALS: BP 146/84; PULSE 69; O2SAT 99
--- NOTE | 2017-07-19 11:28 | Anesthesiology Progress Note ---
Anesthesia Progress Note Date of Service Jul 19, 2017. Progress Notes The patient is POD 1 L eye phacoemulsification with IOL with Dr. Elizabeth. The patient called the surgery center wanting to know what medications she had received for her anesthesia. She stated that she saw Dr. Elizabeth in clinic this morning and that she was upset that she still did not have clear vision in her eye. I retrieved the patient's record and told her the medications and doses that she had received. She stated that although she felt she had a pleasant experience yesterday and didn't remember anything form during the procedure that she may want a general anesthetic in the future as she was worried that moving during the procedure may have caused her blurriness. I instructed her to discuss this with her surgeon in the future as well. After speaking with the patient I spoke to Cezar who stated that he explained to the patient earlier today that the anesthesia was not a problem and did not cause her blurry vision and that this is caused by normal swelling that should resolved in two to three days.
== END | disposition home or self-care (01) ==
LOC: X.SURG 10:33
PROVIDERS: ATTEND Ophthalmology
DX: H26.9 Unspecified cataract (principal); Z88.2 Allergy status to sulfonamides; Z88.1 Allergy status to other antibiotic agents; Z98.41 Cataract extraction status, right eye; F17.200 Nicotine dependence, unspecified, uncomplicated

== ENCOUNTER → 2017-10-10 | Outpatient (CLI) | payer BC ==
[~2017-10-10] MED LIST changes: -500ML BSS 0.3ML EPI 1:1000PF IRRIG ONE; -ACETAMINOPHEN 325 MG TAB PO PRN; -AMVISC PLUS 0.8ML SYRINGE INT OCU ONE; -ATROPINE SULFATE 0.1 MG/ML 5ML SYR IV PRN; -BSS FLUSH ONE; +CLB100 PO; -EpHEDrine SULFATE INJ 50 MG/ML AMP IV PRN; -EpINEphrine INJ 1MG/ML AMP 1 MG/ML AMP ONE; -FENTANYL CITRATE INJ 50 MCG/1 ML 2 ML VIAL ONE; -IBUPROFEN 200 MG TAB ONE; -LACTATED RINGER'S 1000ML 500 ML IV SCH; -LIDOCAINE 3.5% OPH GEL PER APPLICATION CHARGE ONE; -LIDOCAINE HCL 1% MPF 2 ML VIAL ONE; -MIDAZOLAM HCL 1 MG/ML 2ML VIAL ONE; -NURSING VERBAL MED ORDER ONE; -PHENYLEPHRINE HCL 10% OP SOLN PER DROP CHARGE OPL SCH; -POVIDONE-IODINE OP SOLN 30 ML BTL ONE; -PROPARACAINE 0.5% OP SOLN PER DROP CHARGE OPL SCH; -PROPOFOL IV EMULSION 10 MG/ML 20 ML VIAL IV ONE; -TOBRAMYCIN/DEXAMETHASONE OPH OINT PER APPLN CHARGE ONE
== END | disposition home or self-care (01) ==
LOC: C.MAMM 13:32
PROVIDERS: ATTEND Family Medicine
DX: Z13.820 Encounter for screening for osteoporosis (principal)

== ENCOUNTER → 2017-11-09 | Outpatient (CLI) | payer BC ==
--- NOTE | 2017-11-09 12:28 | DIAGNOSTIC IMAGING REPORT ---
CHEST 2 VIEWS ROUTINE CLINICAL HISTORY: 77 years-old Female presenting with preoperative assessment. TECHNIQUE: PA and lateral views of the chest were obtained. COMPARISON: 07/14/2016. FINDINGS: Cardiomediastinal silhouette normal. Calcified granulomas noted. Lungs and pleural spaces otherwise clear. Osseous structures normal. Upper abdomen normal. IMPRESSION: 1. No acute cardiopulmonary disease. Electronically signed by: Cassius Hodge M.D. 11/09/2017 12:27 PM Dictated Date/Time: 11/09/2017 12:25 PM
[2017-11-09 12:42] LABS: BASO % 0.3 %; BASO ABS # 0.02 K/uL (0-0.2); EOS % 0.6 %; EOS ABS # 0.04 K/uL (0-0.5); HEMATOCRIT 35.2 % (37-47); IG# 0.02 K/uL (0.00-0.02); LYMPH ABS # 2.09 K/uL (1.2-3.4); MEAN CELL VOLUME 105.4 fL (80-100); MEAN CORPUSCULAR HEMOGLOBIN 35.9 pg (25-34); MEAN CORPUSCULAR HGB CONC 34.1 g/dl (32-36); MEAN PLATELET VOLUME 10.5 fL (7.4-10.4); MONO % 7.9 %; MONO ABS # 0.53 K/uL (0.11-0.59); NEUT % 59.9 %; NEUT ABS # 4.05 K/uL (1.4-6.5); PLATELET COUNT 212 K/uL (130-400); RED CELL DISTRIBUTION WIDTH CV 12.9 % (11.5-14.5); RED CELL DISTRIBUTION WIDTH SD 49.6 fL (36.4-46.3); WHITE BLOOD COUNT 6.75 K/uL (4.8-10.8)
[2017-11-09 12:49] LABS: BLOOD UREA NITROGEN 9 mg/dl (7-18); CALCIUM 9.1 mg/dl (8.5-10.1); CARBON DIOXIDE 25 mmol/L (21-32); CREATININE 0.75 mg/dl (0.60-1.20); GLUCOSE 112 mg/dl (70-99); SODIUM 133 mmol/L (136-145)
[2017-11-09 12:54] LABS: PTT PATIENT 28.3 SECONDS (21.0-31.0)
== END | disposition home or self-care (01) ==
LOC: C.CPL 11:26
PROVIDERS: ATTEND Orthopaedic Surgery
DX: Z01.810 Encounter for preprocedural cardiovascular examination (principal); Z01.811 Encounter for preprocedural respiratory examination; Z01.812 Encounter for preprocedural laboratory examination

== ENCOUNTER 2025-01-03 09:02 | Observation (INO) ==
--- NOTE | 2024-11-19 11:01 | PAT Medication Instructions ---
Medication Instructions Date of Service November 19, 2024 Home Medications Medication Instructions Recorded tiotropium bromide 2.5 2 puff inhalation DAILY #4 grams 11/21/23 mcg/actuation mist for inhalation (Spiriva Respimat) albuterol sulfate 90 mcg/actuation 1 inh inhalation Q6H #1 ea 01/29/24 breath activated powder inhaler apixaban 2.5 mg tablet 2.5 mg PO BID #180 tabs 11/18/24 multivitamin 1 tab PO DAILY ibuprofen 400 mg tablet 400 mg PO Q6H PRN tiotropium bromide 2.5 mcg/actuation mist for inhalation (Spiriva Respimat) 2 puff inhalation DAILY albuterol sulfate 90 mcg/actuation breath activated powder inhaler 1 inh inhalation Q6H apixaban 2.5 mg tablet 2.5 mg PO BID digoxin 125 mcg (0.125 mg) tablet 250 mcg PO HS diltiazem HCl 300 mg capsule,extended release 24 hr 300 mg PO HS Continue as directed tiotropium bromide 2.5 mcg/actuation mist for inhalation (Spiriva Respimat) 2 puff inhalation DAILY ASK your surgeon for instructions ibuprofen 400 mg tablet 400 mg PO Q6H PRN ASK your prescriber and surgeon apixaban 2.5 mg tablet 2.5 mg PO BID DO NOT take the morning of surgery multivitamin 1 tab PO DAILY Take morning of surgery With a small sip of water, OTHERWISE NOTHING TO EAT OR DRINK AFTER MIDNIGHT: albuterol sulfate 90 mcg/actuation breath activated powder inhaler 1 inh inhalation Q6H(please bring with you to hospital day of surgery if possible) Take evening before surgery albuterol sulfate 90 mcg/actuation breath activated powder inhaler 1 inh inhalation Q6H digoxin 125 mcg (0.125 mg) tablet 250 mcg PO HS diltiazem HCl 300 mg capsule,extended release 24 hr 300 mg PO HS Other Notes If you have any questions please call us at [phone] or [phone] or [phone] or [phone]
--- NOTE | 2024-11-26 12:34 | Anesthesiology Consultation ---
Date of Service November 26, 2024 Assessment & Plan (1) Encounter for pre-operative examination: Chart Review Chart Review: Acceptable Risk for Surgery (pending review of upcoming cardio and pulm office visits ) and Patient seen in Pre Admission Testing - Awaiting routine [facility] appt 12/30/24 - Awaiting pulm appt 11/29/24 ([place]) - Discussed with Dr. Diego- due to age, functional status and PMH- patient is NOT an ideal OPJ candidate- patient and surgeon's office informed Per PAT appt on 11/26/24, no recent illness/disease exposures, illness related symptoms, or recent illness/disease positive tests. Will leave to surgeon's discretion if preop Covid testing needed Teaching & Discussion Pre-Anesthesia Teaching/Discussion Notes: Instructed NPO after midnight before surgery,except medications with 15 cc of water. Medication instructions provided according to the PAT guidelines. History Surgery Operation Date: 01/03/25 10:30 Proposed Procedures p Right Reverse Total Shoulder Arthroplasty - Andrew Andino, Height/Weight Height: 5 ft 6 in Weight: 55.1 kg Allergies Allergy/AdvReac Type Severity Reaction Status Date / Time clindamycin Allergy Intermediate HIVES Verified 11/26/24 10:14 Sulfa (Sulfonamide Allergy Intermediate RASH Verified 11/26/24 10:14 Antibiotics) Medications Home Medications Medication Instructions Recorded Confirmed Last Taken multivitamin 1 tab PO DAILY #0 tabs 11/09/16 11/26/24 12/02/17 20:00 ibuprofen 400 mg tablet 400 mg PO Q6H PRN Pain #0 tabs 11/16/16 11/26/24 1 Week Ago ~11/28/17 tiotropium bromide 2.5 2 puff inhalation DAILY #4 grams 11/21/23 11/26/24 Unknown mcg/actuation mist for inhalation (Spiriva Respimat) albuterol sulfate 90 mcg/actuation 1 inh inhalation Q6H #1 ea 01/29/24 11/26/24 Unknown breath activated powder inhaler apixaban 2.5 mg tablet 2.5 mg PO BID #180 tabs 11/18/24 11/26/24 Unknown digoxin 125 mcg (0.125 mg) tablet 250 mcg PO HS 11/19/24 11/26/24 Unknown diltiazem HCl 300 mg 300 mg PO HS 11/19/24 11/26/24 Unknown capsule,extended release 24 hr Past Medical History Medical History (Updated 11/26/24 @ 15:59 by Yaneth Magaña PA-C) Atrial fibrillation controlled with meds; follows with [facility]io on Eliquis Breast cancer dx'ed around 2014 (bilateral) s/p lumpectomy b/l- no chemo or XRT ; could not tolerate hormone medication COPD (chronic obstructive pulmonary disease) following with [facility] Pulm - feels breathing stable - not currently using inhalers (pt seeing 11/29/24 to discuss); quit smoking 2023 History of anesthesia reaction pt was told that she 'was aggressive' during cataract surgery/awareness during anesthesia; no issues with 11/2017 PATRICK Mitral regurgitation moderate per 2019 ECHO Osteoarthritis Pulmonary nodules [facility] pulm following Exercise / Class Metabolic Activity III < 4 Walking/Shop/Light housework (one flight of stairs - no chest pain, mild SOB ) Past Family History Family History Father Hearing loss Other Allergies Cancer Heart disease Hypertension No family history of adverse response to anesthesia No family history of bleeding disorder Denies family history of Ovarian cancer Breast cancer Colorectal cancer Past Surgical History Surgical History H/O sinus surgery History of appendectomy History of cataract surgery right and left History of dilation and curettage History of esophageal surgery excision abcess x 2 History of excision of pilonidal cyst History of hip replacement R PATRICK 2018 History of open reduction and internal fixation (ORIF) procedure left ankle Hx of lumpectomy LEFT AND RIGHT BREAST Past Anesthesia History No Hx of Anesthesia Complications (with exception to awareness during cataract procedure / was pushing people away during procedure) and No Family Hx of Anesthesia Complications History of PONV No Hx of PONV and No Hx of Motion Sickness Social History Smoking Status: Former smoker tobacco type: cigarettes Smoking cigarettes per day: 10 Do You Dip or Chew Tobacco: No Smoking End Date: 12/2023 Hx Alcohol Use: Yes Alcohol type: beer, wine and hard liquor alcohol intake frequency: 0-2 drinks per day (1-2 drinks/day) Hx Substance Use: No substance use type: does not use Review of Systems - Hx of snoring (mild/intermittent) - no hx of sleep study Patient denies chest pain, shortness of breath at rest, dyspnea on exertion, reflux, cough, wheezing, palpitations. No hx of seizures, stroke, PR. No hx of blood clots or blood transfusions Physical Exam Vital Signs VITALS BP 107/64 P 67 TEMP 97.6 SP02 98% RESP 16 Constitutional no acute distress ENMT Mouth: no TMJ clicking Thyromental Distance: > or= 3.5 Finger Breadths (4.0) Mallampati Class: II Missing molar Crowns to side teeth and molars Neck + limited neck extension (mild) Respiratory normal respiratory effort; no respiratory distress Auscultation: lungs clear to auscultation bilaterally and + diminished lung sounds (L>R); no wheezes Cardiovascular Heart Sounds: no murmur Vessels: no carotid bruit Irregularly irregular - rate controlled Musculoskeletal Spine: no pain with cervical ROM Extremities: extremities normal to inspection Psychiatric Orientation: alert Lab Results Anesthesia Preop Results Results Anesthesia Widget: WBC 7.53 K/ul (4.8-10.8) 11/26/24 Hgb 13.1 g/dl (12.0-16.0) 11/26/24 Hct 37.9 % (37.0-47.0) 11/26/24 Plt 241 K/uL (130-400) 11/26/24 Na 136 mmol/L (136-145) 11/26/24 K 4.6 mmol/L (3.5-5.1) 11/26/24 Cl 99 mmol/L (98-107) 11/26/24 CO2 30 mmol/L (21-32) 11/26/24 BUN 15 mg/dl (6-23) 11/26/24 Creat 0.94 mg/dl (0.6-1.2) 11/26/24 Glucose Level 152 mg/dl (70-99(Fasting)) H 11/26/24 PT 11.3 Seconds (9.0-12.0) 11/26/24 PTT 30 Seconds (21-31) 11/26/24 INR 1.0 (0.9-1.1) 11/26/24 Blood Type A Positive 11/26/24 Antibody Screen NEGATIVE 11/26/24 Testing Electrocardiogram Date: 11/26/24 Findings: + AFIB @ (70bpm) RBBB T wave abnormality, consider inferior ischemia When compared to EKG from Jan 29, 2024- no significant change was found per cardio Chest X-Ray Date: 02/27/24 FINDINGS: The lungs are hyperinflated. Cardiomediastinal silhouette is within normal limits. No pleural effusion or pneumothorax. No acute osseous abnormalities. IMPRESSION: Hyperinflated lungs compatible with COPD. Echocardiogram Date: 03/25/20 EF: 50-55% LV Function: normal Other Findings: no LVH Regional wall motion abnormalities cannot be excluded due to limited visualization. Some mild distal septal HK LA and RA mildly dilated Mild mitral annular calcification Moderate MR. Borderline MVP RVSP is normal Other Testing Chest CT 10/22/24= Cardiomegaly and mild emphysema. There are 2 low suspicion 3 mm pulmonary nodules in the left lower lobe which were not clearly seen on 10/09/2023. A precautionary 6-month follow-up examination is recommended for evaluation. A 9 mm solid nodule and a 9 mm groundglass nodule in the left upper lobe have not significantly changed dating back to 2021. These remain pathologically indeterminate, and the groundglass lesion remains suspicious for a low-grade adenomatous lesion. Continued attention to these nodules at follow- up is recommended. There is no airspace consolidation or pleural effusion.
--- NOTE | 2025-01-01 12:41 | History & Physical Report ---
Date of Service January 01, 2025 Assessment & Plan (1) Rotator cuff arthropathy of right shoulder: We will proceed with a right reverse shoulder arthroplasty. Postoperatively, she will be placed in a sling and kept overnight in the hospital for postop medical management. She plans to use energy physical therapy after discharge. History of Present Illness Chief Complaint: Cuff tear arthropathy right shoulder. Primary Care Provider: Sincere Lutz is a pleasant 84-year-old female who has been dealing with chronic right shoulder pain. She has been struggling with it for a few years. I have diagnosed her with osteoarthritis of her right shoulder. Unfortunately, injections and therapy have not helped. After failing conservative treatment, she has elected proceed with a right reverse shoulder arthroplasty. Allergies Allergy/AdvReac Type Severity Reaction Status Date / Time clindamycin Allergy Intermediate HIVES Verified 11/26/24 10:14 Sulfa (Sulfonamide Allergy Intermediate RASH Verified 11/26/24 10:14 Antibiotics) Home Medications Medication Instructions Recorded Confirmed Type multivitamin 1 tab PO DAILY #0 tabs 11/09/16 12/30/24 History ibuprofen 400 mg tablet 400 mg PO Q6H PRN Pain #0 tabs 11/16/16 12/30/24 History apixaban 2.5 mg tablet 2.5 mg PO BID #180 tabs 11/18/24 12/30/24 Rx digoxin 125 mcg (0.125 mg) tablet 250 mcg PO HS 11/19/24 12/30/24 History diltiazem HCl 300 mg 300 mg PO HS 11/19/24 12/30/24 History capsule,extended release 24 hr tiotropium bromide 2.5 2 puff inhalation DAILY #4 grams 11/29/24 12/30/24 Rx mcg/actuation mist for inhalation (Spiriva Respimat) Past Med/Surg History Problem List Sprain, hand COPD (chronic obstructive pulmonary disease) Exertional shortness of breath Current smoker Multiple pulmonary nodules Oral mucosal lesion Rotator cuff arthropathy of right shoulder Weakness (Acute) Medication side effects (Acute) Anticoagulant long-term use (Acute) Mitral regurgitation Moderate on echocardiogram 02/2020 Hypomagnesemia Abdominal pain Encounter for pre-operative examination History of anesthesia reaction aggressive during the cataract surgery Medical History Atrial fibrillation controlled with meds; follows with [facility] on Eliquis History of anesthesia reaction pt was told that she 'was aggressive' during cataract surgery/awareness during anesthesia; no issues with 11/2017 PATRICK Pulmonary nodules [facility] pulm following Mitral regurgitation moderate per 2019 ECHO COPD (chronic obstructive pulmonary disease) following with [facility] Pulm - feels breathing stable - not currently using inhalers (pt seeing 11/29/24 to discuss); quit smoking 2023 Osteoarthritis Breast cancer dx'ed around 2014 (bilateral) s/p lumpectomy b/l- no chemo or XRT ; could not tolerate hormone medication Surgical History History of hip replacement R PATRICK 2017 H/O sinus surgery History of esophageal surgery excision abcess x 2 History of excision of pilonidal cyst History of cataract surgery right and left History of appendectomy History of open reduction and internal fixation (ORIF) procedure left ankle History of dilation and curettage Hx of lumpectomy LEFT AND RIGHT BREAST Family History Father Hearing loss Other Allergies Cancer Heart disease Hypertension No family history of adverse response to anesthesia No family history of bleeding disorder Denies family history of Ovarian cancer Breast cancer Colorectal cancer Social History Smoking Status: Former smoker Cigarettes Per Day: 10; Second Hand Exposure: No; Do You Dip or Chew Tobacco: No; Hx Alcohol Use: Yes Alcohol type: beer, wine and hard liquor Hx Substance Use: No Preferred Language: Tongan Communication Ability: Effective Visual Impairment: Partially Limited Hearing Ability: Normal Juice Standardizer Required: No Beliefs That Will Affect Care: None Current Living Situation: Spouse Feels Safe at Home: Yes Assistive Devices: Glasses Review of Systems All systems reviewed & are unremarkable except as noted in HPI & below. Physical Exam On physical exam of the right shoulder, she is about 110 degrees of forward elevation 110 degrees of abduction and 20 degrees of external rotation. She has crepitus throughout.. Constitutional WD/WN, vitals as above Eyes PERRL, conjunctivae normal, anicteric sclerae ENMT external ear and nose normal, oropharynx normal Neck trachea midline, no thyromegaly Respiratory normal respiratory effort Cardiovascular RRR, no murmur, no edema Gastrointestinal (Abdomen) normal bowel sounds, soft, nontender, no hepatosplenomegaly Psychiatric A+Ox3, euthymic affect Results & Data Results & Data Laboratory Results . Diagnostic Findings . PG Care Time/CCT Total # of Minutes Spent Total Time Spent with Patient: Total time spent is greater than 50% in coordination of care (as documented) at patient's floor/unit and/or counseling patient: Coding Level of Care Code None Diagnoses Rotator cuff arthropathy of right shoulder M12.811
[~2025-01-03 09:02] MED LIST changes: +BUPIVACAINE 0.5 % 5 MG/1 ML PF 10ML VIAL ONE; -CLB100 PO; -IBUP-1459 PO; -MULT-506 PO
[2025-01-03] MEDS: GABAPENTIN 300 MG CAP PO SCH (09:33)
[2025-01-03] MEDS: LR 60ML/HR IV SCH (09:33)
[2025-01-03] MEDS: ACETAMINOPHEN 500 MG TAB PO SCH ×2 (09:33→14:43)
[2025-01-03] MEDS: FAMOTIDINE 20 MG TAB PO SCH (09:33)
[2025-01-03] MEDS: dexAMETHasone**PF** 10 MG/ML VIAL IV SCH (09:49)
[2025-01-03] MEDS: LR 15ML/HR IV SCH (09:49)
[2025-01-03] MEDS ORDERED: MIDAZOLAM HCL 1 MG/ML 2ML VIAL ONE (10:06)
[2025-01-03] MEDS ORDERED: PROPOFOL IV EMULSION 10 MG/ML 20 ML VIAL IV ONE (10:08)
[2025-01-03] MEDS ORDERED: ROCURONIUM BROMIDE 10 MG/ML 5 ML VIAL IV ONE (10:08)
--- NOTE | 2025-01-03 10:12 | History & Physical Bridge Note ---
Date of Service January 03, 2025 History & Physical Bridge Note I have examined the patient, reviewed the History & Physical and in the interval since the performance of the History & Physical I have noted the following changes of clinical significance: no changes noted
[2025-01-03] MEDS ORDERED: ATROPINE SULFATE 0.1 MG/ML 10ML SYR IV PRN (10:13)
[2025-01-03] MEDS ORDERED: ONDANSETRON INJ 2 MG/ML 2 ML VIAL IV PRN ×2 (10:13→14:15)
[2025-01-03] MEDS: TRANEXAMIC ACID 1,000 MG **IV Pre-op IV SCH (10:49)
[2025-01-03] MEDS: ORTHO JOINT ANESTHETIC ONE (11:33)
[2025-01-03] MEDS ORDERED: PHENYLEPHRINE 100MCG/ML 5ML SYR ONE (11:33)
[2025-01-03] MEDS ORDERED: SUGAMMADEX SODIUM 200 MG/2 ML VIAL IV ONE (11:42)
[2025-01-03] MEDS ORDERED: ONDANSETRON INJ 2 MG/ML 2 ML VIAL ONE (11:42)
[2025-01-03] MEDS: ROPIV 0.5% 246mg, Ketorolac 30mg, EPINEPHrine 0.5mg in NSS INFIL SCH (11:58)
--- NOTE | 2025-01-03 12:09 | Operative Report ---
PG Post Operative Report Pre & Post Diagnosis Operation Date: 01/03/25 11:00 Pre-Op Diagnosis: Rotator cuff arthropathy of right shoulder with tendinopathy long head biceps tendon Post-Op Diagnosis: Rotator cuff arthropathy of right shoulder with tendinopathy long head of the biceps tendon I identified the patient and participated in the time-out.: Yes Procedure Operation Date: 01/03/25 11:00 Actual Procedures p Right Reverse Total Shoulder Arthroplasty(Right) with open biceps tenodesis as a distinct and separate procedure (modifier 59)- Andrew Andino DO Surgeon Andrew Andino DO String Laster Elio Medina PA-C Estimated Blood Loss 150 Findings Consistent with Post-Op Diagnosis Specimens Right humeral head Description of Procedure A CPT code modifier 59: The long head of the biceps tendon was enlarged and inflamed consistent with tendinopathy. A tenodesis was opted. This was a separate and distinct portion of the procedure. For these reasons, a CPT code modifier 59 will be added to this case. Implants used: I used a [employer] Comprehensive reverse total shoulder arthroplasty system with a size 11 press fit micro humeral stem, a +6 offset humeral tray and a +3 retentive humeral bearing, a 25 mm large augment baseplate with a 6.5 mm central screw and superior and inferior locking screws, and a size 36 mm eccentric glenosphere. Nelda arrived at [facility] for the above procedure. He was seen in the preoperative holding area and the operative extremity was identified and signed. He was given a preoperative antibiotic, TXA, and an interscalene nerve block. He was taken back to the operating room, laid on table in supine position, and put under general anesthesia. He was then put into the beachchair position. The shoulder was then prepped and draped in sterile fashion. A timeout was done and the patient and the operative extremity was properly identified. A deltopectoral approach was used. Dissection was taken down through the fascia and the deltoid was retracted laterally and the conjoined tendon was retracted medially. The anterior shoulder was exposed. The biceps groove was opened up and the biceps tendon was examined extensively. The biceps tendon demonstrated enlargement and inflammatory changes consistent with longstanding inflammation in the context of osteoarthritis and cuff arthropathy. The long head of the biceps tendon was then tenodesed to the upper border of the pectoralis major. This was a separate and distinct portion of the procedure. The subscapularis was then directly released off the lesser tuberosity with a peel technique. The inferior capsule was released and the humeral head was dislocated. A canal finding reamer was sent down the center of the humeral canal. Sequential reaming up to a size 11 reamer was done. Off that reamer, a proximal humeral resection guide was placed. The proximal humerus was resected at 135 of inclination and 25 of retroversion. Osteophytes were then removed and the glenoid was exposed. Time was spent doing a complete capsular and labral release. The glenoid guide was then placed in the inferior aspect of the glenoid. A 3.2 mm Steinmann pin was then placed into the glenoid vault at 10 of inclination. The glenoid baseplate was then reamed. The final size 25 mm large augment baseplate was then impacted in the place. A 6.5 mm central screw was then placed followed by superior and inferior locking screws. A 36 mm eccentric glenosphere was then impacted into place. Surrounding soft tissues were then injected with 100 cc an orthopedic pain control cocktail. The proximal humerus was then exposed. Sequential broaching of the humerus up to a size 11 broach was done. Off that broach a +6 offset and +3 retentive humeral tray was trialed. The shoulder was then reduced, brought through a full range of motion, and felt to be stable. The shoulder was then dislocated and the broach was removed. The final size 11 micro press-fit humeral stem was then impacted into place. A +2 retentive humeral bearing was then snapped onto a +6 offset humeral tray. The humeral tray was then impacted onto the humeral stem. The shoulder was once again reduced, brought through a full range of motion, and felt to be stable. The subscapularis was poor quality and unable to be repaired.. A dilute betadyne lavage was then done for 3 minutes. The joint was then irrigated with normal saline solution. Hemostasis was obtained. The interval was closed with 2-0 Vicryl suture. The skin was then closed with 2-0 Vicryl and Rachel Zipline. A Silverlon dressing was placed and the arm was rested in a regular arm sling. He was then extubated and transferred to a hospital bed. He taken to the postanesthesia care unit in stable condition. He tolerated the procedure well. Elio Medina PA-C, was present for the entire procedure. He was critical for pa tient positioning, prepping, draping, retraction exposure, wound closure and application of sterile dressing. I attest to the content of the Intraoperative Record and any orders documented therein. Any exceptions are noted below.
--- NOTE | 2025-01-03 13:02 | XRay Report ---
XR shoulder RT min 2V routine CLINICAL HISTORY: Post shoulder surgery COMPARISON: 08/12/2020 FINDINGS: Right shoulder prosthesis shows no hardware complication. There is expected soft tissue ga s. IMPRESSION: Unremarkable postoperative exam. ACT 112: Negative or not required by law. Electronically signed by: Jarek Feng M.D. 01/03/2025 1:01 PM
--- NOTE | 2025-01-03 13:07 | Anesthesiology Progress Note ---
Date of Service January 03, 2025 Anesthesia Post Procedure Vital Signs Vital Signs: Temp Pulse Pulse Resp BP Pulse Ox O2 Del Method 01/03/25 12:50 72 16 112/58 L 100 Oxymask 01/03/25 12:40 74 16 127/74 100 Oxymask 01/03/25 12:32 36.0 C L 73 16 113/58 L 100 Oxymask 01/03/25 09:19 36.6 C 98 H 16 158/69 H 97 Room Air O2 Flow Rate 01/03/25 12:50 5 01/03/25 12:40 5 01/03/25 12:32 5 01/03/25 09:19 Pain Intensity Right Shoulder: Pain Intensity: 8 Transfer of Care Handoff Completed per policy Notes Mental Status: alert / awake / arousable and participated in evaluation Patient Amnestic to Procedure: Yes Nausea / Vomiting: adequately controlled Pain: adequately controlled Airway Patency, RR, SpO2: stable & adequate BP & HR: stable & adequate Hydration State: stable & adequate Anesthetic Complications: no major complications apparent and Pt Satisfied with anesthetic care
[2025-01-03] MEDS ORDERED: MAGNESIUM HYDROXIDE SUSP 30 ML UDC PO PRN (14:15)
[2025-01-03] MEDS ORDERED: HYDROmorphone INJ 0.5 MG/0.5 ML SYR IV PRN (14:15)
[2025-01-03] MEDS ORDERED: NALOXONE HCL 0.4 MG/1 ML VIAL/CARP IV PRN (14:15)
[2025-01-03] MEDS ORDERED: METOCLOPRAMIDE HCL INJ 5 MG/ML 2 ML VIAL IV PRN (14:15)
[2025-01-03] MEDS: BUPIVACAINE LIPOSOME 1.3% 133 MG/10 ML VIAL ONE (14:21)
[2025-01-03] MEDS: SODIUM CHLORIDE 0.9% 1,000 ML IV SCH (14:49)
[2025-01-03] MEDS: DIGOXIN 0.125 MG TAB PO SCH (16:28)
[2025-01-03] MEDS: DOCUSATE SODIUM 100 MG CAP PO SCH (19:49)
[2025-01-03] MEDS: SENNA 8.6 MG TAB PO SCH (19:49)
--- NOTE | 2025-01-04 07:40 | Orthopedic Progress Note ---
Date of Service January 04, 2025 Assessment & Plan (1) Status post reverse total arthroplasty of right shoulder: Overall she is doing very well. She is not having much pain in the right shoulder. She will be seen by physical therapy today for ambulation and range of motion exercises. She is wearing her sling as instructed. She can be discharged to home later today. She will follow-up with orthopedics in 2 weeks. Subjective Nelda was seen and examined at bedside this morning. Overall she doing very well. She is not having much pain in the right shoulder. The nerve block is still in effect. She did have a fall last night and fell little bit onto her right side by she did not appear to injure the shoulder. She has no new complaints.. Review of Systems All systems reviewed & are unremarkable except as noted in HPI & below. Physical Exam On physical exam of the right shoulder, the dressing is clean and dry. She is wearing her sling as instructed. The nerve block is still in effect.. Results & Data Results & Data Laboratory Results . Diagnostic Findings Postoperative x-rays of the right shoulder show the prosthesis to be in anatomic alignment without any evidence of fracture, dislocation, or loosening.. PG Care Time/CCT Total # of Minutes Spent Total Time Spent with Patient: Total time spent is greater than 50% in coordination of care (as documented) at patient's floor/unit and/or counseling patient: Coding Level of Care Code 73310 Post Operative Follow-Up Diagnoses Status post reverse total arthroplasty of right shoulder Z96.611
[2025-01-04 08:03] VITALS: BP 110/67; PULSE 87; RESP 18; TEMP 98.4; O2SAT 95
[2025-01-04] MEDS: APIXABAN 2.5 MG TAB PO SCH (08:12)
[2025-01-04] MEDS: MULTIVITAMIN TAB PO SCH (08:13)
== END 2025-01-04 11:11 | disposition home or self-care (01) ==
LOC: 3E 09:02 → ASU 09:02